=== PATIENT | female | born 1985 | race Caucasian/White ===

== ENCOUNTER → 2025-05-16 09:35 | Outpatient (CLI) | payer OTHER, SELFPAY ==
[2025-05-16 11:35] LABS: Influenza A - CEPHEID Flu A POSITIVE (NEGATIVE); Influenza B - CEPHEID Flu B NEGATIVE (NEGATIVE)
[2025-05-16 11:36] LABS: COVID-19 CEPHEID 4-PLEX PCR Negative (Negative)
== END ==
PROVIDERS: Referring Provider Nurse Practitioner Family; Visit Provider Nurse Practitioner Family
DX: R05.1 Acute cough (principal)
CPT/HCPCS: 87637